=== PATIENT | male | born 1970 | race Caucasian/White ===

== ENCOUNTER 2023-06-05 21:20 | Emergency (ER) | payer OTHER ==
[~2023-06-05] VITALS: Ht 188 cm; Wt 97.5 kg
[2023-06-05] MEDS ORDERED: TETANUS & DIPHTHERIA TOX,ADULT 0.5 ML VIAL IM ONE (21:45)
== END 2023-06-05 23:01 | disposition home or self-care (01) ==
LOC: ER 21:20
DX: S61.412A Laceration without foreign body of left hand, initial encounter (principal); W26.0XXA Contact with knife, initial encounter; Y93.89 Activity, other specified; Y92.89 Other specified places as the place of occurrence of the external cause; Y99.8 Other external cause status

== ENCOUNTER 2023-11-07 02:54 | Emergency (ER) | payer OTHER ==
[~2023-11-07] VITALS: Ht 188 cm; Wt 102.1 kg
[2023-11-07] MEDS ORDERED: TAMSULOSIN HCL 0.4 MG CAP PO STA (03:41)
[2023-11-07] MEDS ORDERED: PROMETHAZINE HCL 50 MG/ML AMPUL IM STA (03:41)
[2023-11-07] MEDS ORDERED: KETOROLAC TROMETHAMINE 30 MG VIAL IV STA (03:41)
[2023-11-07] MEDS ORDERED: PROMETHAZINE HCL 50 MG/ML AMPUL IM ONE (03:45)
[2023-11-07] MEDS ORDERED: KETOROLAC TROMETHAMINE 30 MG VIAL ONE ×2 (03:45→10:04)
[2023-11-07] MEDS ORDERED: TAMSULOSIN HCL 0.4 MG CAP PO ONE (03:45)
[2023-11-07] MEDS ORDERED: SODIUM CHLORIDE 0.45 % 1,000 ML IV ONE (03:45)
[2023-11-07 04:15] LABS: HEMATOCRIT 41.2 % (39.0-48.0); HEMOGLOBIN 14.3 g/dL (13-16.00); MEAN CELL VOLUME 87.3 fL (80.0-100.00); MEAN CORPUSCULAR HEMOGLOBIN 30.2 pg (27.00-32.0); MEAN CORPUSCULAR HGB CONC 34.6 g/dl (32.0-36.0); PLATELET COUNT 213 K/uL (150-450); RED BLOOD COUNT 4.72 M/uL (4.00-6.00); RED CELL DISTRIBUTION WIDTH 14.2 % (11.5-14.5)
[2023-11-07 05:14] LABS: CALCIUM 9.9 mg/dL (8.5-10.1); CREATININE SERUM 1.37 mg/dL (0.70-1.30); GFR 53.95; POTASSIUM 4.67 mEq/L (3.5-5.1)
[2023-11-07] MEDS ORDERED: ONDANSETRON HCL 2 MG/ML VIAL IV STA (07:11)
[2023-11-07] MEDS ORDERED: ONDANSETRON HCL 2 MG/ML VIAL ONE ×2 (07:39→10:05)
[2023-11-07 09:29] LABS: URINE APPEARANCE Cloudy; URINE BILIRRUBIN Negative (NEGATIVE); URINE BLOOD Large; URINE COLOR Yellow; URINE GLUCOSE Negative (NEGATIVE); URINE LEUKOCYTE Negative; URINE NITRATE Negative; URINE PROTEIN Negative (NEGATIVE); URINE UROBILINOGEN 0.2 E.U./dl
[2023-11-07 09:33] LABS: URINE EPITHELIAL CELLS 3.3 uL (0.0-38.8); URINE RBC 1930.7 uL (0.0-20.8); URINE WBC 8.1 uL (0.0-23.2)
[2023-11-07] MEDS ORDERED: ONDANSETRON ODT8 MG PO (10:01)
[2023-11-07] MEDS ORDERED: KETO10TA2 PO (10:01)
[2023-11-07] MEDS ORDERED: CIPRO500 MG PO (10:01)
[2023-11-07] MEDS ORDERED: TAMS0.4C PO (10:01)
[2023-11-07] MEDS ORDERED: KETOROLAC TROMETHAMINE 30 MG VIAL IV ONE (10:15)
[2023-11-07] MEDS ORDERED: ONDANSETRON HCL 2 MG/ML VIAL IV ONE (10:15)
[2023-11-07 10:43] LABS: URINE KETONE 40 (NEGATIVE)
== END 2023-11-07 10:10 | disposition home or self-care (01) ==
LOC: ER 02:56
PROVIDERS: General Practice
DX: N20.1 Calculus of ureter (principal); R10.9 Unspecified abdominal pain